=== PATIENT | female | born 1990 | race Caucasian/White ===

== ENCOUNTER 2024-10-05 21:11 | Emergency (ER) | payer MEDICAID, SELFPAY ==
[2024-10-05 21:12] VITALS: BMI 29.7
[2024-10-05 21:38] VITALS: BP 147/96; PULSE 101; RESP 16; TEMP 36.6; O2SAT 100
--- NOTE | 2024-10-05 21:52 | PD.EDVAGBL ---
ED OB Contraction Preg RMI/HPI General Chief complaint: Vaginal Bleeding Stated complaint: VAGINAL BLEEDING Time Seen by Provider: 10/05/24 21:16 Source: patient Arrival date/time: 10/05/24 21:11 Limitations: no limitations RME / HPI RME / HPI Narrative: 34-year-old female with no reported past medical history presents for evaluation of abnormal vaginal bleeding x 2 days. Patient reports saturating menstrual pad every hour for the last x 1 day. She endorses weakness, suprapubic cramping, nausea, vomiting, chills, weakness. Patient reports taking 400 mg ibuprofen x 3 hours prior to arrival with minimal improvement in symptoms. She reports last LMP x 8 weeks ago and notes irregular, heavy menstrual cycles. Denies taking test prior to arrival to the ED today. Report A0. Patient reports surgical history of a gastric sleeve. Related Data Previous Rx's ?Medication ?Instructions ?Recorded Hydrocodone/Acetaminophen * (NORCO 1 tab PO Q4H PRN pain #8 tabs 12/16/16 5/325 *) ibuprofen 600 mg tablet 600 mg PO Q6HR PRN PAIN #30 tabs 12/16/16 ferrous sulfate 325 mg (65 mg 325 mg PO QDAY #30 tabs 10/05/24 iron) tablet Allergies Allergy/AdvReac Type Severity Reaction Status Date / Time No Known Allergies Allergy Verified 10/05/24 21:12 Review of Systems Constitutional Constitutional: Denies body ache(s), Reports chills, Reports fatigue, Denies fever(s) and Denies headache(s) Eyes Eyes: Denies blurry vision and Denies change in vision ENT Ears, Nose, Mouth, and Throat: Denies disequilibrium, Denies dizziness, Denies headache(s) and Denies neck pain Cardiovascular Cardiovascular: Denies chest pain, Denies dyspnea and Denies leg edema Respiratory Respiratory: Denies cough and Denies dyspnea Gastrointestinal Gastrointestinal: Reports abdominal pain, Reports cramping, Reports nausea and Reports vomiting Genitourinary Genitourinary: Reports abnormal vaginal bleeding, Reports dysuria, Reports hematuria and Reports hot flashes Musculoskeletal Musculoskeletal: Denies back pain and Denies neck pain Integumentary/Breasts Skin/Breast: Denies rash Neurologic Neurologic: Denies disequilibrium, Denies dizziness and Denies headache(s) Endocrine Endocrine: Reports fatigue Past Medical History Past Medical History CARDIAC: Positive Hypercholesterolemia; Negative Congestive Heart Failure RESPIRATORY: Negative Chronic Obstructive Pulmonary Disease (COPD) GENITOURINARY: Negative Renal Disease ENDOCRINE: Negative Diabetes Mellitus Type 1 or Diabetes Mellitus Type 2 Surgical History SURGICAL: Positive Abdominal Surgery and Gastric Bypass Surgery Social History SMOKING STATUS: Current every day smoker ED Exam General Limitations: Present no limitations General appearance: Present alert and in no apparent distress Head Head exam: Present atraumatic and normocephalic Eye Eye exam: Present normal appearance and EOMI ENT ENT exam: Present mucous membranes moist Neck Neck exam: Present normal inspection and full ROM Chest Chest inspection: Present normal inspection and symmetric chest wall rise Respiratory Respiratory exam: Absent respiratory distress or wheezes Cardiovascular Cardiovascular exam: Present tachycardia Abdominal Exam Abdominal exam: Present soft; Absent distention, tenderness, guarding, rebound or rigidity Extremities Exam Extremities exam: Present normal inspection and full ROM Back Exam Back exam: Present normal inspection and full ROM Neurological Exam Neurological exam: Present alert Psychiatric Psychiatric exam: Present normal affect Skin Skin exam: Present warm, dry and intact Course Quality Measures none Orders Category Date Time Status Beta HCG,Quantitative Stat Lab 10/05/24 22:27 Completed CBC Stat Lab 10/05/24 22:27 Completed CMP [Comprehensive Metabolic Panel] Stat Lab 10/05/24 22:27 Completed HCG Qualitative,Urine Stat Lab 10/05/24 22:30 Completed PT [Prothrombin Time with INR] Stat Lab 10/05/24 22:27 Completed PTT [Partial Thromboplastin Time] Stat Lab 10/05/24 22:27 Completed Type and Screen Stat Lab 10/05/24 22:27 Completed UA, C/S IF [Urinalysis, C/S if Indicated] Stat Lab 10/05/24 22:30 Completed Acetaminophen Tab [Tylenol Tab] Med 10/05/24 21:47 Discontinued 650 mg PO X1 ONE Ondansetron Odt [Zofran Odt] Med 10/05/24 21:47 Discontinued 4 mg PO X1 ONE Reevaluation(s) Reevaluation #1: Discussed results of today's workup with the patient and offered her a blood transfusion for acute anemia. Patient declines at this time and says she would rather follow-up with her primary care and take her iron pills as prescribed. I discussed negative test with the patient and she states that she does not want the ultrasound and is requesting to go home. Time: 23:18 Vital Signs Vital signs: Vital Signs Temperature 97.8 F 10/05/24 21:38 Pulse Rate 101 H 10/05/24 21:38 Respiratory Rate 16 10/05/24 21:38 Blood Pressure 147/96 H 10/05/24 21:38 Pulse Oximetry (%) 100 10/05/24 21:38 Oxygen Delivery Method Room Air 10/05/24 21:38 Pulse ox 100% on room air, within normal limits. Vaginal Bleeding MDM Narrative MDM Narrative: 34-year-old female presented with heavy vaginal bleeding. Vital signs significant for tachycardia. Beta-hCG less than 1 today, therefore less concern for ectopic or threatened . hCG was negative and patient reported history of heavy periods therefore more likely menorrhagia. Patient was anemic today with hemoglobin of 7.4. We discussed her lab results and I offered her a blood transfusion but she declined at this time. She reported that she would follow-up with her primary care doctor for further evaluation and treatment within the next 24 to 48 hours. I prescribed her a short course of iron supplementation and advised her to return to the ED if she develops fever, worsening pain, worsening or change in her symptoms. Ultimately the patient was discharged with plan for close follow-up with primary care. Patient vocalized understanding of this plan and was given the opportunity ask questions. Patient data External records reviewed:: [facility] previous records Clinical information provided by:: patient Social determinants that could affect healthcare access:: substance use Patient has the following chronic illnesses:: None reported. How is presenting disease/condition affected by chronic disease/condition?: no chronic disease Evaluation data The following diagnostics were reviewed and interpreted by me:: lab results and radiology exam(s) Lab and/or radiology exams considered but not ordered:: Ultrasound initially ordered but canceled at the patient's request following negative test. Interpretation Summary: Patient anemic with hemoglobin 7.4. Microcytic anemia. Negative test. UA without signs of infection. Medications / Prescriptions Medications or Prescriptions considered but not ordered:: Rx given. Medication administrations:: Medication Administration History Discontinued Medications Acetaminophen (Acetaminophen 325 Mg Tablet) 650 mg PO X1 ONE Stop: 10/05/24 21:48 Last Admin: 10/05/24 22:35 Dose: 650 mg Documented By: SHAE Ondansetron HCl (Ondansetron Odt 4 Mg Tabrap) 4 mg PO X1 ONE; Protocol Stop: 10/05/24 21:48 Last Admin: 10/05/24 22:35 Dose: 4 mg Documented By: KF Rx given. Consultations Consultation(s) initiated? (list below): No Diagnosis Vaginal Bleeding Differential Diagnosis: missed , threatened , dysfunctional uterine bleeding, menometrorrhagia, incomplete , ectopic without intrauterine and vaginal bleeding Most likely diagnosis given after review of the tests above:: Metrorrhagia, anemia, abnormal vaginal bleeding. Admission Indicated Admission indicated?: not indicated Admission Request Was there a request for admission?: No Disposition Plan Disposition Plan: Discharge Discharge Attestation Discharge Attestation: The patient and all family members were given an opportunity to ask questions and understood the discharge instructions. Discharge instructions specifically effects, indications for sooner follow up or return to the emergency department, and the expected course of current diagnosis. Patient condition: Stable Discharge Plan Plan Patient Disposition: HOME (Self Care) Disposition Comment: stable Prescriptions/Referrals Prescriptions/Med Rec: New ferrous sulfate 325 mg (65 mg iron) tablet 325 mg PO QDAY Qty: 30 0RF No Action ibuprofen 600 MG tablet 600 mg PO Q6HR PRN (Reason: PAIN) Qty: 30 0RF Hydrocodone/Acetaminophen * (NORCO 5/325 *) 1 TAB tablet 1 tab PO Q4H PRN (Reason: pain) Qty: 8 0RF Referrals: No Primary/Family,Physician [Primary Care Provider] - In 1 week Problem List Clinical Impression: Vaginal bleeding, Anemia, Metrorrhagia Impression comment: Take iron pills once daily as prescribed. Consider starting [id number] multivitamin with iron in the meantime. Eat iron rich foods such as red meat, green leafy vegetables. Take vitamin C with iron. Follow-up with primary care within the next 2 to 3 days for reevaluation and recheck of iron level. Return to the ED if your symptoms worsen or change. Patient/Caregiver Discharge Instructions Education Materials: Anemia Print Language: Icelandic Stand Alone Forms: Mayi Award Info., Patient Portal Info Letter PA/ESCORT SERVICE ATTENDANT Supervising Physician PA/ESCORT SERVICE ATTENDANT Supervising Physician: Dr. Tidwell
[2024-10-05] MEDS: ONDANSETRON ODT 4 MG TABRAP PO (22:35)
[2024-10-05] MEDS: ACETAMINOPHEN 325 MG TABLET 650 MG PO (22:35)
[2024-10-05 22:42] LABS: Collection Type, Urine Clean Catch
[2024-10-05 22:43] LABS: Basophils % (Auto) 1 % (0-2.5); Eosinophils # (Auto) 0.2 Thou/mm3 (0.0-0.5); Eosinophils % (Auto) 4 % (0-10); Hematocrit 27.4 % (36.0-46.0); Immature Granulocytes % (Auto) 0 % (0-0); Immature Granulocytes Auto 0.01 Thou/mm3 (0.00-0.00); Lymphocytes # (Auto) 2.9 Thou/mm3 (1.0-4.8); Lymphocytes % (Auto) 52 % (10-50); Mean Corpuscular Hemoglobin 18.7 pg (25.0-35.0); Mean Corpuscular Volume 69 fL (80-100); Monocytes # (Auto) 0.3 Thou/mm3 (0.0-0.8); Monocytes % (Auto) 5 % (0-12); Neutrophils # (Auto) 2.1 Thou/mm3 (1.8-7.7); Neutrophils % (Auto) 38 % (37-80); Nucleated Red Blood Cell % 0 /100 WBC (0); Platelet Count 361 Thou/mm3 (140-440); RDW Standard Deviation 53.4 fL (36.4-46.3); Red Blood Count 3.96 Miln/mm3 (4.00-5.20); White Blood Count 5.5 Thou/mm3 (3.6-11.0)
[2024-10-05 22:46] LABS: Hemoglobin 7.4 g/dL (12.0-16.0)
[2024-10-05 22:46] LABS: Bilirubin,Urine Negative (Negative); Blood,Urine 3+ (Negative); Culture Indicated,Urine Not Indicated; Glucose, Urine Negative (Negative); Ketones,Urine Trace (Negative); Leukocyte Esterase,Urine Positive (Negative); Nitrite,Urine Negative (Negative); Protein,Urine 1+ (Neg - Trace); RBC,Urine 3 /hpf (0-3); Specific Gravity,Urine 1.032 (1.001-1.035); Squamous Epithelial Cell,Urine 6 /hpf (0-5); WBC,Urine 5 /hpf (0-5)
[2024-10-05 22:52] LABS: HCG Qualitative,Urine Negative
[2024-10-05 22:54] LABS: Clarity,Urine Clear (Clear/Hazy); Color,Urine Lt-Yellow (Lt Yel-Yel)
[2024-10-05 23:00] LABS: INR 0.9 (0.9-1.3); Partial Thromboplastin Time 23.5 Seconds (22.0-36.0); Prothrombin Time 9.9 Seconds (9.0-12.2)
[2024-10-05 23:03] LABS: Alanine Aminotransferase 21 U/L (10-49); Albumin, Serum 3.9 gm/dL (3.5-5.0); Albumin/Globulin Ratio 1.3 (1.2-2.2); Alkaline Phosphatase 64 U/L (46-116); Anion Gap 8 (7-16); Aspartate Amino Transferase 54 U/L (0-34); BUN/Creatinine Ratio 16 Ratio (12-20); Beta HCG,Quantitative < 1 mIU/mL (<5.0); Bilirubin,Total 0.2 mg/dL (0.3-1.2); Blood Urea Nitrogen 11 mg/dL (9-23); Calcium 8.1 mg/dL (8.3-10.6); Calcium (Corrected) 8.2 mg/dL (8.5-10.1); Carbon Dioxide 27.5 mMol/L (20.0-31.0); Chloride 109 mMol/L (98-107); Creatinine (Component) 0.7 mg/dL (0.6-1.3); Estimated Creatinine Clearance 130.1 mL/min (>60); Globulin 2.9 gm/dL (2.3-3.5); Glucose 96 mg/dL (74-106); Osmolality,Calculated 286 (275-295); Potassium 3.5 mMol/L (3.4-5.1); Sodium 144 mMol/L (136-145); Total Protein 6.8 gm/dL (5.7-8.2); eGFR > 60 See Note
== END 2024-10-05 23:32 | disposition home or self-care (01) ==
PROVIDERS: Physician Assistant; Emergency Provider Emergency Medicine
DX: N92.1 Excessive and frequent menstruation with irregular cycle (principal); N93.9 Abnormal uterine and vaginal bleeding, unspecified; D64.9 Anemia, unspecified
CPT/HCPCS: 36415; 80053; 81001; 81025; 84702; 85025; 85610; 85730; 86850; 86900; 86901; 99283; Q0162; A9270

== ENCOUNTER 2024-12-01 11:54 | Emergency (ER) | payer MEDICAID, SELFPAY ==
[2024-12-01 12:04] VITALS: BP 150/80; PULSE 109; RESP 18; TEMP 36.6; O2SAT 96; BMI 32.1
--- NOTE | 2024-12-01 12:08 | EKG_ITS ---
[facility] Test Date: 2024-12-01 Pat Name: HEMANTH LYCNH Department: Room: - Gender: Female Obstetrics Technician: : 1990 Requested By: Michael Joshi (ZOHAIB) Order Number: [id number] Reading MD: Michael Joshi (TRAVEL OCCUPATIONAL THERAPIST) Measurements Intervals Bern Rate: 100 P: 55 MN: 104 QRS: 47 QRSD: 88 T: 52 QT: 348 QTc: 449 Interpretive Statements SINUS TACHYCARDIA WITH SHORT MN INTERVAL WITH OCCASIONAL VENTRICULAR PREMATURE COMPLEXES POSSIBLE LEFT ATRIAL ENLARGEMENT [-0.1mV P-WAVE IN V1/V2] ABNORMAL RHYTHM ECG No previous ECG available for comparison /store/[email or web address]/[id number]/ecg/[id number].pdf
--- NOTE | 2024-12-01 12:16 | EDNOTE_ITS ---
ED Weakness RME/HPI General Chief complaint: Weakness Stated complaint: GETTING WEAKER AND WEAKER; VAGINAL BLEEDING X1M Time Seen by Provider: 12/01/24 12:13 Source: patient Arrival date/time: 12/01/24 11:54 34-year-old female with a history of iron deficiency anemia presents to the [facility] room with a chief complaint of weakness fatigue x 1 month. Patient states she has a history of blood transfusions and irregular menses. Patient states she is currently not bleeding but has a history of heavy menses. Mode of arrival: ambulatory Limitations: no limitations Related Data Previous Rx's ?Medication ?Instructions ?Recorded Hydrocodone/Acetaminophen * (NORCO 1 tab PO Q4H PRN pa in #8 tabs 12/16/16 5/325 *) ibuprofen 600 mg tablet 600 mg PO Q6HR PRN PAIN #30 tabs 12/16/16 ferrous sulfate 325 mg (65 mg 325 mg PO QDAY #30 tabs 10/05/24 iron) tablet ferrous sulfate 325 mg (65 mg 325 mg PO QDAY #30 tabs 12/01/24 iron) tablet (Iron (ferrous sulfate)) nitrofurantoin 100 mg PO Q12H 5 days #10 ca ps 12/01/24 monohydrate/macrocrystals 100 mg capsule (Macrobid) Allergies Allergy/AdvReac Type Severity Reaction Status Date / Time No Known Allergies Allergy Verified 12/01/24 11:57 Review of Systems Review of Systems Systems Reviewed: All systems reviewed, normal except as documented Constitutional Constitutional: Reports system reviewed and no additional complaints, except as documented, Reports fatigue, Denies fever(s), Denies headache(s) and Reports weakness Eyes Eyes: Reports system reviewed and no additional complaints, except as documented, Denies blurry vision and Denies change in vision ENT Ears, Nose, Mouth, and Throat: Reports system reviewed and no additional complaints, except as documented, Denies otalgia, Denies headache(s), Denies nasal congestion, Denies throat swelling and Denies vertigo Cardiovascular Cardiovascular: Reports system reviewed and no additional complaints, except as documented, Denies chest pain, Denies dyspnea and Denies dyspnea on exertion Respiratory Respiratory: Reports system reviewed and no additional complaints, except as documented, Denies chest congestion, Denies cough, Denies dyspnea, Denies dyspnea on exertion and Denies wheezing Gastrointestinal Gastrointestinal: Reports system reviewed and no additional complaints, except as documented, Denies abdominal pain, Denies cramping, Denies nausea and Denies vomiting Genitourinary Genitourinary: Reports system reviewed and no additional complaints, except as documented Musculoskeletal Musculoskeletal: Reports system reviewed and no additional complaints, except as documented and Denies back pain Integumentary/Breasts Skin/Breast: Reports system reviewed and no additional complaints, except as documented and Denies wounds Neurologic Neurologic: Reports system reviewed and no additional complaints, except as documented, Denies confusion, Denies headache(s), Denies lack of coordination, Denies vertigo and Reports weakness Psychiatric Psychiatric: Reports system reviewed and no additional complaints, except as documented, Denies anxiety, Denies confusion, Denies depression, Denies paranoia, Denies suicidal ideation and Denies tactile hallucinations Endocrine Endocrine: Reports system reviewed and no additional complaints, except as documented and Reports fatigue Hematologic/Lymphatic Hematologic/Lymphatic: Reports system reviewed and no additional complaints, except as documented and Denies lymphadenopathy Allergic/Immunologic Allergic/Immunologic: Reports system reviewed and no additional complaints, except as documented, Denies throat swelling, Denies urticaria and Denies wheezing ED Exam General Limitations: Present no limitations General appearance: Present alert and in no apparent distress Head Head exam: Present atraumatic Eye Eye exam: Present normal appearance, PERRL and EOMI ENT ENT exam: Present normal exam, normal oropharynx and mucous membranes moist Neck Neck exam: Present normal inspection, full ROM and trachea midline Chest Chest inspection: Present normal inspection and symmetric chest wall rise Respiratory Respiratory exam: Present normal lung sounds bilaterally Cardiovascular Cardiovascular exam: Present regular rate, normal rhythm and normal heart sounds Abdominal Exam Abdominal exam: Present soft and normal bowel sounds; Absent distention, tenderness or guarding Extremities Exam Extremities exam: Present normal inspection and full ROM Back Exam Back exam: Present normal inspection and full ROM Neurological Exam Neurological exam: Present alert, oriented X3 and CN II-XII intact Psychiatric Psychiatric exam: Present normal affect and normal mood Skin Skin exam: Present warm, dry, intact and normal color Course Quality Measures none Orders Category Date Time Status EKG (ED ONLY) *Do not use* NOW Care 12/01/24 12:08 Completed EKG (ED Only) Stat Exams 12/01/24 12:08 Draft CBC Stat Lab 12/01/24 12:26 Completed Chlamydia/GC/TV - PCR Stat Lab 12/01/24 12:23 Received Comprehensive Metabolic Panel Stat Lab 12/01/24 12:26 Completed Drug Screen,Urine Stat Lab 12/01/24 12:23 Completed HCG Qualitative,Urine Stat Lab 12/01/24 12:23 Completed Partial Thromboplastin Time Stat Lab 12/01/24 12:26 Completed Prothrombin Time with INR Stat Lab 12/01/24 12:26 Completed Troponin I Stat Lab 12/01/24 12:26 Completed Type and Screen Stat Lab 12/01/24 12:26 Completed UA, C/S IF [Urinalysis, C/S if Indicated] Stat Lab 12/01/24 12:23 Completed Urine Culture Stat Lab 12/01/24 12:23 Received Vital Signs Vital signs: Vital Signs Temperature 97.8 F 12/01/24 12:04 Pulse Rate 109 H 12/01/24 12:04 Respiratory Rate 18 12/01/24 12:04 Blood Pressure 150/80 H 12/01/24 12:04 Pulse Oximetry (%) 96 12/01/24 12:04 Oxygen Delivery Method Room Air 12/01/24 12:04 O2 saturation 96% within normal limits Weakness MDM Narrative MDM Narrative:: 34-year-old female with a history of iron deficiency anemia presents to the emergency room with a chief complaint of weakness fatigue x 1 month. Patient states she has a history of blood transfusions and irregular menses. Patient states she is currently not bleeding but has a history of heavy menses. Patient is hemodynamically stable and in no apparent distress Physical examination shows nontender abdomen. The patient denies any current vaginal bleeding. CBC CMP were completed and her hemoglobin is at 8.1. And hematocrit 27. Urinalysis showed a urinary tract infection. Patient was discharged and educated to follow-up with primary care provider in the next 24 to 48 hours and return to the emergency room for any evidence of worsening signs or symptoms Patient data External records reviewed:: [facility] previous records Clinical information provided by:: patient Social determinants that could affect healthcare access:: none Patient has the following chronic illnesses:: No chronic illness How is presenting disease/condition affected by chronic disease/condition?: no chronic disease Evaluation data The following diagnostics were reviewed and interpreted by me:: lab results and radiology exam(s) Lab and/or radiology exams considered but not ordered:: Labs and radiology exams considered and ordered Interpretation Summary: N/A Medications / Prescriptions Medications or Prescriptions considered but not ordered:: Rx given Medication administrations:: Rx given Consultations Consultation(s) initiated? (list below): No Diagnosis Weakness Differential Diagnosis: acute myocardial infarction, anemia and dehydration Most likely diagnosis given after review of the tests above:: Urinary tract infection Admission Indicated Admission indicated?: not indicated Admission Request Was there a request for admission?: No Disposition Plan Disposition Plan: Discharge Discharge Attestation Discharge Attestation: The patient and all family members were given an opportunity to ask questions and understood the discharge instructions. Discharge instructions specifically effects, indications for sooner follow up or return to the emergency department, and the expected course of current diagnosis. Patient condition: Stable Discharge Plan Plan Patient Disposition: HOME (Self Care) Discharge Disposition comment: Stable Prescriptions/Referrals Prescriptions/Med Rec: New nitrofurantoin monohyd/m-cryst [Macrobid] 100 mg capsule 100 mg PO Q12H 5 Days Qty: 10 0RF Rx Instructions: must administer with a meal/food ferrous sulfate [Iron (ferrous sulfate)] 325 mg (65 mg iron) tablet 325 mg PO QDAY Qty: 30 0RF No Action ibuprofen 600 MG tablet 600 mg PO Q6HR PRN (Reason: PAIN) Qty: 30 0RF Hydrocodone/Acetaminophen * (NORCO 5/325 *) 1 TAB tablet 1 tab PO Q4H PRN (Reason: pain) Qty: 8 0RF ferrous sulfate 325 mg (65 mg iron) tablet 325 mg PO QDAY Qty: 30 0RF Referrals: Kristin Moore PA-C [Primary Care Provider] - In 1 week Problem List Clinical Impression: UTI (urinary tract infection) Patient/Caregiver Discharge Instructions Education Materials: ED CYSTITIS Female Adult Additional Instructions: Please follow-up with your primary care provider in the next 24 to 48 hours At this time your current blood levels are within normal limits. Your hemoglobin is 8.1 and does not require an emergency transfusion Your blood work was within normal limits. Your urinalysis showed a urinary tract infection. Antibiotics are sent to your pharmacy For any evidence of worsening signs or symptoms return to the emergency room immediately Print Language: Irish Stand Alone Forms: Mayi Award Info., Patient Portal Info Letter KAELYN/BERNA Supervising Physician KAELYN/BERNA Supervising Physician: Dr. WAYNE
[2024-12-01 12:28] LABS: Collection Type, Urine Clean Catch
[2024-12-01 12:43] LABS: Basophils # (Auto) 0.1 Thou/mm3 (0.0-0.2); Basophils % (Auto) 1 % (0-2.5); Eosinophils # (Auto) 0.1 Thou/mm3 (0.0-0.5); Eosinophils % (Auto) 1 % (0-10); Hematocrit 27.8 % (36.0-46.0); Immature Granulocytes % (Auto) 0 % (0-0); Immature Granulocytes Auto 0.02 Thou/mm3 (0.00-0.00); Lymphocytes % (Auto) 44 % (10-50); Mean Corpuscular HGB Conc 29.1 g/dl (31.0-37.0); Mean Corpuscular Hemoglobin 18.8 pg (25.0-35.0); Mean Corpuscular Volume 65 fL (80-100); Monocytes # (Auto) 0.3 Thou/mm3 (0.0-0.8); Monocytes % (Auto) 5 % (0-12); Neutrophils # (Auto) 3.3 Thou/mm3 (1.8-7.7); Neutrophils % (Auto) 49 % (37-80); Nucleated Red Blood Cell % 0 /100 WBC (0); Platelet Count 313 Thou/mm3 (140-440); RDW Standard Deviation 45.3 fL (36.4-46.3); White Blood Count 6.8 Thou/mm3 (3.6-11.0)
[2024-12-01 12:46] LABS: Hemoglobin 8.1 g/dL (12.0-16.0)
[2024-12-01 12:58] LABS: INR 0.9 (0.9-1.3); Partial Thromboplastin Time 23.5 Seconds (22.0-36.0); Prothrombin Time 10.3 Seconds (9.0-12.2)
[2024-12-01 13:03] LABS: HCG Qualitative,Urine Negative
[2024-12-01 13:06] LABS: Alanine Aminotransferase 12 U/L (10-49); Albumin, Serum 4.5 gm/dL (3.5-5.0); Albumin/Globulin Ratio 1.7 (1.2-2.2); Alkaline Phosphatase 54 U/L (46-116); Anion Gap 14 (7-16); Aspartate Amino Transferase 50 U/L (0-34); BUN/Creatinine Ratio 16 Ratio (12-20); Bilirubin,Total 0.3 mg/dL (0.3-1.2); Blood Urea Nitrogen 11 mg/dL (9-23); Carbon Dioxide 22.8 mMol/L (20.0-31.0); Chloride 102 mMol/L (98-107); Creatinine (Component) 0.7 mg/dL (0.6-1.3); Estimated Creatinine Clearance 130.5 mL/min (>60); Globulin 2.6 gm/dL (2.3-3.5); Glucose 94 mg/dL (74-106); Osmolality,Calculated 276 (275-295); Potassium 3.9 mMol/L (3.4-5.1); Sodium 139 mMol/L (136-145); Total Protein 7.1 gm/dL (5.7-8.2); Troponin I < 0.002 ng/mL (0.0-0.045); eGFR > 60 See Note
[2024-12-01 13:10] LABS: Bacteria,Urine 1+; Bilirubin,Urine Negative (Negative); Blood,Urine Trace (Negative); Clarity,Urine Turbid (Clear/Hazy); Color,Urine Yellow (Lt Yel-Yel); Glucose, Urine Negative (Negative); Ketones,Urine Negative (Negative); Leukocyte Esterase,Urine Positive (Negative); Nitrite,Urine Negative (Negative); Protein,Urine Negative (Neg - Trace); RBC,Urine 2 /hpf (0-3); Specific Gravity,Urine 1.018 (1.001-1.035); Squamous Epithelial Cell,Urine 9 /hpf (0-5); Urobilinogen,Urine Negative mg/dL (0.0-1.0); WBC,Urine 25 /hpf (0-5)
[2024-12-01 13:11] LABS: Amorphous Crystals,Urine Present (Absent); Culture Indicated,Urine Yes
[2024-12-01 13:19] LABS: Amphetamine/Methamp Scrn,U Positive (Negative); Barbiturate Screen,Urine Negative (Negative); Benzodiazepines Screen,Urine Negative (Negative); Benzoylecgonine Screen, Ur Negative (Negative); Fentanyl Screen,Urine Negative (Negative); Opiate Screen,Urine Negative (Negative); THC Screen,Urine Positive (Negative)
[2024-12-01 15:37] LABS: Chlamydia trachomatis PCR Negative (Not Detect); Neisseria Gonorrhoeae DNA PCR Negative (Not Detect); Trichomonas Negative (Negative)
[2024-12-01 15:54] LABS: Path Review Blood Smear Sent to Pathologist
== END 2024-12-01 20:39 | disposition home or self-care (01) ==
PROVIDERS: Nurse Practitioner Primary Care; Emergency Provider Emergency Medicine; PCP Physician Assistant Medical
DX: N39.0 Urinary tract infection, site not specified (principal)
CPT/HCPCS: 36415; 80053; 80307; 81001; 81025; 84484; 85025; 85610; 85730; 86850; 86900; 86901; 87077; 87086; 87186; 87491; 87591; 87661; 93005; 99283

== ENCOUNTER 2025-05-19 18:00 | Emergency (ER) | payer MEDICAID, SELFPAY ==
--- NOTE | 2025-05-19 18:48 | PC.NURSE ---
CALLED FOR PT FROM [facility]/OUTSIDE, NO [email or web address]@ [phone]
--- NOTE | 2025-05-19 18:57 | PC.NURSE ---
SECURITY SAW PT AND HER GET IN VEHICLE AND LEAVE; PT ELOPED.
== END 2025-05-19 18:57 | disposition left against medical advice (07) ==
LOC: SERX 19:02
PROVIDERS: Emergency Provider Emergency Medicine
DX: Z53.21 Procedure and treatment not carried out due to patient leaving prior to being seen by health care provider (principal)
CPT/HCPCS: 99281